=== PATIENT | male | born 1980 | race Caucasian/White ===

== ENCOUNTER 2018-04-13 13:08 | Emergency (ER) | payer MEDICAID ==
[~2018-04-13] VITALS: Ht 177.8 cm; Wt 104.3 kg
[2018-04-13 13:25] VITALS: BP 136/74
[2018-04-13 15:33] LABS: Basophils # (auto) 0 uL; Basophils % (auto) 0.3 % (0.0-2.0); Monocytes # (auto) 1.2 uL
[2018-04-13 15:34] LABS: Eosinophils # (auto) 0.2 uL; Eosinophils % (auto) 1.7 % (0.0-7.0); Hematocrit 53.2 % (41.0-53.0); Lymphocytes # (auto) 2.7 uL; Lymphocytes % (auto) 23.1 % (10.0-50.0); Mean Corpuscular Hemoglobin 30.1 pg (28.0-32.0); Mean Corpuscular Hgb Conc. 33.9 g/dL (32.0-36.0); Mean Corpuscular Volume 88.6 fL (80.0-100.0); Monocytes % (auto) 10.4 % (0.0-12.0); Neutrophils # (auto) 7.5 uL; Neutrophils % (auto) 64.5 % (37.0-80.0); Nucleated Red Blood Cells % 0.2 %; Platelet Count (auto) 288 10^3/uL (140-450); White Blood Cell 11.6 10^3/uL (4.4-10.8)
[2018-04-13 16:02] LABS: Potassium 4.2 mmol/L (3.5-5.1)
[2018-04-13 16:03] LABS: Albumin 4.4 g/dL (3.4-5.0); BUN/Creatinine Ratio 13.1; Bilirubin, Total 1.8 mg/dL (0.2-1.0); Calcium 8.5 mg/dL (8.5-10.1); Total Protein 8.9 g/dL (6.4-8.2)
== END 2018-04-13 15:22 | disposition left against medical advice (07) ==
LOC: ER 13:08
DX: M54.9 Dorsalgia, unspecified (principal); Z53.21 Procedure and treatment not carried out due to patient leaving prior to being seen by health care provider
CPT/HCPCS: 36415; 80053; 85025; 93005